=== PATIENT | female | born 1990 | race Caucasian/White ===

== ENCOUNTER 2017-04-22 09:44 | Emergency (ER) | payer SELFPAY ==
[~2017-04-22] VITALS: Ht 165.1 cm; Wt 54.9 kg
[2017-04-22 09:47] VITALS: BP 123/88
[2017-04-22] MEDS ORDERED: NKM (09:58)
[2017-04-22] MEDS ORDERED: LORazepam 1mg tab ORAL ONE (10:00)
[2017-04-22] MEDS ORDERED: ATIVAN0.5 MG ORAL (10:12)
[2017-04-22 10:19] VITALS: BP 118/78
--- NOTE | 2017-04-24 07:15 | Emergency Room Report ---
History of Present Illness General Chief Complaint: Behavioral Complaint Source: Patient Present Illness HPI 26YOF walk-in with concern she is having a "panic attack." Occurring last few days. Worse at night. Assoc with palpitations, chest pain, SOB, feels "like I'm going to ." No previous Psych history. Never been diagnosed with panic or anxiety attacks previously Denies ETOH, drug use Was just in [place] visiting family - was stressed about father's alcohol abuse. First attack occurred there. Taking OTC herbal supplement without improvement Denies SI, HI, AVH Allergies: Coded Allergies: PENICILLINS (Verified Allergy, Unknown, 04/22/17) copied from uncoded section Patient History Past Medical History: none Past Surgical History: none Pertinent Family History: none Social History: Denies: smoking, alcohol use, drug use Last Menstrual Period: 04/22/17 Now: No - pt has Nexplanon implant 68 mg : 0 Para: 0 Immunizations: UTD Reviewed Nursing Documentation: PMH: Agreed, PSxH: Agreed Nursing Documentation-PMH History Of Psychiatric Problem: Yes - Anxiety Review of Systems All Other Systems: negative except mentioned in HPI Physical Exam Vital Signs Date Time Temp Pulse Resp B/P (MAP) Pulse Ox O2 Delivery O2 Flow Rate FiO2 04/22/17 09:47 98.8 79 22 123/88 100 Room Air Sp02 EP Interpretation: reviewed, normal General Appearance: normal inspection, well appearing, no apparent distress, alert, GCS 15, non-toxic Head: normocephalic, atraumatic Eyes: bilateral eye PERRL, bilateral eye EOMI ENT: normal ENT inspection, hearing grossly normal, normal voice Neck: normal inspection, full range of motion, supple, no bony tend Respiratory: normal inspection, lungs clear, normal breath sounds, no respiratory distress, no retraction, no wheezing Cardiovascular #1: regular rate, rhythm, no edema Gastrointestinal: normal inspection, normal bowel sounds, non tender, soft, no guarding, no hernia Genitourinary: no CVA tenderness Musculoskeletal: normal inspection, back normal, normal range of motion, Melvin' s Sign negative Neurologic: normal inspection, alert, responsive, speech normal Psychiatric: normal inspection, judgement/insight normal, memory normal, mood/ affect normal, no suicidal/homicidal ideation, no delusions, anxious Skin: normal inspection, normal color, no rash Medical Decision Making Diagnostic Impression: Primary Impression: Panic attack ER Course Panic attack vs anxiety given known stressors Ativan given in ED with Rx for same No SI, HI, AVH No ETOh or drug use Advised short course ativan, followup with PMD as needed for Psych referral Last Vital Signs Date Time Temp Pulse Resp B/P (MAP) Pulse Ox O2 Delivery O2 Flow Rate FiO2 04/22/17 10:19 81 18 118/78 99 Room Air 04/22/17 10:19 98.6 Status: improved Disposition: HOME, SELF-CARE Condition: Improved Scripts Lorazepam* (ATIVAN*) 0.5 Mg Tablet 0.5 MG ORAL THREE TIMES A DAY for anxiety for 7 Days, #30 TAB Prov: DOT BILL M.D. 04/22/17 Referrals: NOT CHOSEN IPA/,REFERRING (PCP) Patient Instructions: Panic Attacks, [id number] Additional Instructions: - Try lavender spray/oils to relax, against the anxiety - Take ativan as needed during the day and especially at night when you have a panic attack - Try the meditation kuldeep [employer]space DOT BILL M.D. Apr 24, 2017 07:15
== END 2017-04-22 10:20 | disposition home or self-care (01) ==
LOC: EMR 10:15
DX: F41.0 Panic disorder [episodic paroxysmal anxiety] (principal); Z88.0 Allergy status to penicillin
CPT/HCPCS: 99283